=== PATIENT | female | born 1980 | race Caucasian/White ===

== ENCOUNTER 2017-10-01 15:23 | Emergency (ER) | payer OTHER, SELFPAY ==
[2017-10-01 15:25] VITALS: BP 127/88; PULSE 78; RESP 18; TEMP 36.7; O2SAT 99; BMI 37.5
--- NOTE | 2017-10-01 15:50 | CT_ITS ---
STUDY: CT ABDOMEN AND PELVIS WITHOUT CONTRAST REASON FOR EXAM: Female, 37 years old. Left flank pain. RADIATION DOSAGE (If Supplied By Facility): CTDIvol = ( 14.71 ) mGy, DLP = ( 692.01 ) mGycm TECHNIQUE: Transaxial images were obtained from the dome of the diaphragm to the symphysis pubis without oral contrast, and without intravenous contrast. Sagittal and coronal images were reconstructed. Individualized dose optimization techniques were used for this CT. COMPARISON: 07/15/2015. FINDINGS: The visualized lung bases are unremarkable. The visualized portions of the heart are within normal limits. There is decreased attenuation of the liver consistent with steatosis. Normal gallbladder and extrahepatic biliary system. Normal spleen. Normal pancreas. Normal bilateral adrenal glands. Normal right kidney. Left kidney shows mild hydronephrosis and there is mild left hydroureter. Findings are related to a 5 mm left UVJ stone which can be seen on axial image 149. Additionally the left kidney has a 4 mm nonobstructing mid renal stone and a 6 mm nonobstructing lower pole stone. Normal visualized stomach. Normal small intestine. Normal colon. There are surgical clips in the region of the appendix consistent with a prior appendectomy. Normal abdominal aorta. Normal inferior vena cava. Normal retroperitoneum. Normal urinary bladder. Normal visualized uterus. Normal abdominal wall. Normal osseous structures. CT/Abdomen/Pelvis without Cont IMPRESSION: Obstruction of the left kidney, collecting system and ureter from a 5 mm left UVJ stone. Electronically Signed: Reyes Aguilar MD at 17:06 EDT , Service support ,
--- NOTE | 2017-10-01 15:53 | ED.DCSUM_ITS ---
- ER Visit Summary Date of Service: 10/01/17 Chief Complaint: Left flank pain History of Present Illness: The patient is a 37 F with left lower back pain yesterday and mild pink tinged urine. Today she has pain in the left lower quadrant. Patient does have history of prior kidney stones. She denies possibility of with last menstrual cycle ending 3 days ago. Physical Examination: Vital signs unremarkable. Patient sitting upright in the bed. She appears uncomfortable but in no acute distress. Heart is regular rate and rhythm. Lung sounds are clear. Abdomen is soft with mild left lower quadrant tenderness. There is no CVA tenderness on exam. Test Results: CBC was a white count 11.7 with 81% neutrophils. Chemistry studies significant for a creatinine 1.03. Urinalysis shows ketones and blood, no WBCs and nitrites are negative. test negative. CT flank shows obstruction of the left kidney, collecting system, and ureter secondary to a 5 mm stone at the left UVJ. Emergency Department Course and Treatment: Patient was given morphine, Toradol, Zofran, and IV fluids. On repeat evaluation she is resting comfortably and pain is significantly improved. She will be given pain medication for home. She is known to Dr. Dickson and will follow up with him early next week if not improving. If pain recurs or is worse over the weekend she is to return to the emergency room. Treatment Plan: [] Disposition: Discharge Impression: Left ureteral stone This note was generated with [employer] dictation software. It may contain incorrect words, spelling, and punctuation that were not noted in review of the chart prior to signing ED Disposition - Plan for ED Patient: Chief Complaint: Flank Pain Referrals: Surjit Castillo MD [Primary Care Provider] -
[2017-10-01] MEDS: Ketorolac 30 MG/ML Syringe IV (16:04)
[2017-10-01] MEDS: Ondansetron 4 MG/2 ML Vial IV (16:04)
[2017-10-01] MEDS: 0.9% Normal Saline 1,000 ML 250 ML IV (16:04)
[2017-10-01] MEDS: Morphine 4 MG/ML Syringe IV (16:04)
[2017-10-01 16:11] LABS: Absolute Neutrophil Count 9.6 X10^3/uL (2.0-7.7); Basophil# 0.02 X10^3/uL; Basophil% 0.2 % (0-1); Eosinophil# 0.02 X10^3/uL; Eosinophils% 0.2 % (0-5); Hemoglobin 12.9 g/dl (12.0-15.0); Mean Corp Hgb Conc 34.9 g/gl (32-36); Mean Corpuscular Hgb 29.5 pg (27.0-32.0); Mean Corpuscular Volume 84.7 fL (81-99); Mean Platelet Vol. 8.9 fl (6.2-12.0); Monocyte# 0.68 X10^3/uL; Monocyte% 5.8 % (0-10); Neutrophil # 9.57 X10^3/uL (2.7-7.7); Neutrophil % 81.6 % (47-70); Platelet Count 341 K/mm3 (150-450); RBC Distribution Width CV 12.1 % (11.6-14.6); Red Blood Count 4.37 M/mm3 (4.2-5.4); White Blood Count 11.7 K/mm3 (4.4-11.0)
[2017-10-01 16:13] LABS: POSITIVE COUNT NO; POSITIVE DIFFERENTIAL NO; POSITIVE MORPHOLOGY NO
[2017-10-01 16:23] LABS: Anion Gap 11 (5-15); BUN 14 mg/dL (7-18); BUN/Creat Ratio 13.6 RATIO (10-20); Calcium,Total 8.8 mg/dL (8.5-10.1); Chloride 104 mmol/L (98-107); Creatinine, Serum 1.03 mg/dL (0.55-1.02); EST Glomerular Filtration Rate 64 mL/min (>60); Est Glom Filt Rate - Afr Amer 77 mL/min (>60); Estimated Creatinine Clearance 64.58 ml/min; Glucose 84 mg/dL (74-106); Sodium Level 137 mmol/L (136-145)
[2017-10-01 16:24] LABS: White Blood Cells 0 SEEN /hpf (0-5)
[2017-10-01 16:30] LABS: Pregnancy, Serum, hCG Quali. NEGATIVE Negative (0-9 Nonpreg)
[2017-10-01 17:25] LABS: Color, Urine Yellow (Yellow); Glucose, Dipstick NEGATIVE (Normal); Ketone-Dipstick 150 mg/dl (Negative); Specific Gravity, Urine 1.025 (1.002-1.030); Urine Bilirubin Dipstick Negative (Negative); Urine Clarity Sl Cloudy (Clear)
[2017-10-01 17:26] LABS: Bacteria 2+ /hpf (None Seen); Calcium Oxalate Crystals Ur 2+ /hpf (<or=2+); Leukocyte Esterase-Dipstick Negative /ul (Negative); Mucous, Urine 4+ /hpf (<or=2+); Nitrite-Dipstick Negative (Negative); Occult Blood-Urine 150 /ul (Negative); Protein-Dipstick 30 mg/dl (Negative); Red Blood Cells-Urine 5-10 SEEN /hpf (0-5); Squamous Epithelial Cells - UA 5-10 SEEN /hpf (5-10); Urine Urobilinogen 1 mg/dl (Normal)
--- NOTE | 2017-10-01 17:45 | DCINST.ED_ITS ---
ED Disposition - Plan for ED Patient: Disposition: Home or Assisted Living Chief Complaint: Flank Pain Instructions: ED Stone Renal W Colic Prescriptions: Ondansetron [Zofran Odt] 4 mg PO Q8H PRN PRN #10 tab PRN Reason: Nausea Hydrocodone/Acetaminophen [[place] 5-325 Tablet] 1 - 2 each PO 4X/DAY PRN PRN 5 Days #20 tablet PRN Reason: Pain Ketorolac [Toradol] 10 mg PO Q6H PRN #20 tab PRN Reason: Pain Referrals: Adryan Dickson MD [STAFF PHYSICIAN] - 3-5 Days if not improving
[2017-10-01 17:52] VITALS: BP 126/75; PULSE 58; RESP 17; O2SAT 99
--- NOTE | 2017-10-01 17:54 | ED.RN ---
PT GIVEN WRITTEN AND VERBAL DISCHARGE INSTRUCTIONS AND HOME GOING PRESCRIPTIONS. PT VERBALIZES UNDERSTANDING AND DENIES ANY FURTHER QUESTIONS. PT IV D/C AND COVERED WITH 2X2 GAUZE DRESSING AND PAPER TAPE. PT DRESSES SELF AND AMBULATES OUT OF DEPT WITH PARENT AND FAMILY MEMBER.
== END 2017-10-01 17:56 | disposition home or self-care (01) ==
PROVIDERS: Emergency Provider Emergency Medicine; Family Provider Family Medicine; PCP Family Medicine
DX: N20.1 Calculus of ureter (principal); Z87.442 Personal history of urinary calculi
CPT/HCPCS: 74176; 80048; 81001; 84703; 85025; 96361; 96374; 96375; 99283; J7030; A4216

== ENCOUNTER → 2018-03-28 11:32 | Outpatient (CLI) | payer OTHER, SELFPAY ==
[2018-03-28 11:03] VITALS: BMI 32.4
[2018-03-28 11:48] LABS: Absolute Neutrophil Count 7.9 X10^3/uL (2.0-7.7); Basophil# 0.04 X10^3/uL; Basophil% 0.4 % (0-1); Eosinophil# 0.12 X10^3/uL; Eosinophils% 1.1 % (0-5); Hemoglobin 13.2 g/dl (12.0-15.0); Lymphocyte % 20.4 % (19-41); Mean Corp Hgb Conc 33.8 g/gl (32-36); Mean Corpuscular Hgb 29.5 pg (27.0-32.0); Mean Corpuscular Volume 87.1 fL (81-99); Monocyte# 0.54 X10^3/uL; Neutrophil # 7.88 X10^3/uL (2.7-7.7); Neutrophil % 72.9 % (47-70); Platelet Count 330 K/mm3 (150-450); RBC Distribution Width CV 12.8 % (11.6-14.6); RBC Distribution Width SD 39.7 fl (35.1-43.9); Red Blood Count 4.48 M/mm3 (4.2-5.4); White Blood Count 10.8 K/mm3 (4.4-11.0)
[2018-03-28 11:50] LABS: POSITIVE COUNT NO; POSITIVE DIFFERENTIAL NO; POSITIVE MORPHOLOGY NO
== END ==
PROVIDERS: Family Provider Family Medicine; PCP Family Medicine; Referring Provider Nurse Practitioner Women's Health; Visit Provider Nurse Practitioner Women's Health
DX: N92.1 Excessive and frequent menstruation with irregular cycle (principal)
CPT/HCPCS: 36415; 85025

== ENCOUNTER 2018-04-07 07:32 | Day surgery (SDC) | payer OTHER, SELFPAY ==
[2018-03-28 11:03] VITALS: BMI 32.4
[2018-03-31 16:54] VITALS: BMI 32.4
[2018-04-07] VITALS (8 sets, daily range): BP systolic 85–113; BP diastolic 57–83; PULSE 47–97; RESP 16–18; TEMP 36.1–36.9; O2SAT 97–100; BMI 30.8
--- NOTE | 2018-04-07 06:23 | HP.PCM_ITS ---
- Problem List (1) Enlarged uterus Status: Acute (2) Menorrhagia with irregular cycle Status: Acute History and Physical Date of Admission: 04/07/18 Vital Signs 03/31/18 Body Mass Index (BMI) 32.4 03/31/18 Weight: 183 lb 4 oz 03/31/18 Blood Pressure 122/78 H Intake Visit Reasons: pre op/discuss type of hyst Chief Complaint: pre op appt Laundry Aide Required: No Is patient in pain?: No Allergies Sulfa (Sulfonamide Antibiotics) Allergy (Verified 03/31/18 16:13) Rash Medications Multivit-Min/Iron/Folic Acid/K [Multi For Her Softgel] 2 ea PO DAILY 03/31/18 [History Confirmed 03/31/18] Is last menstrual period known: No Post menopausal: No Patient : No : No [facility] Medical History delivery delivered (Acute) Kidney stone (Acute) Migraine (Acute) Surgical History History of appendectomy (Acute) History of bowel resection (Acute) Social History Smoking Status: Never smoker alcohol intake: current details: social substance use type: does not use caffeine: Yes what type of physical activity do you participate in: walking seatbelt use: always do you feel safe at home: Yes additional social history: - Patient works at [employer] [facility] HPI pre op/discuss type of hyst: Details: NATHALY GARRETT is a 37 year old who presents for menometrorrhagia that has failed medical managment. she had a recent ct scan that showed a normal sized uterus, so suspicion is for hormonal dysfunction. ROS Const Constitutional: Denies fatigue, fever(s), headache(s), increased appetite, poor appetite, weight gain or weight loss ENT ENT: Denies dry mouth Cardio Card: Denies chest pain Resp Resp: Denies cough or dyspnea GI GI: Reports as per HPI; denies abdominal pain, constipation, nausea or vomiting : Reports as per HPI; denies difficulty urinating, painful urination, blood in urine, nipple discharge, pelvic pain, urinary frequency, urinary incontinence, urinary h esitancy, urinary urgency, vaginal discharge, vaginal dryness, vaginal odor, vaginal itching or other Skin Skin/Breast: Denies hair loss, change in hair, dry skin, breast lump, breast pain, breast skin changes or nipple discharge Exam Const General: cooperative, healthy appearing, comfortable, no acute distress, well developed Nutritional Appearance: average body habitus Orientation: alert [facility] Head: normal to inspection, normocephalic Ears: hearing grossly normal bilaterally, external ears normal Nose: external nose normal, nares normal Face and sinus: normal facial exam Neck Neck: normal visual inspection, no lymphadenopathy, trachea midline Thyroid: thyroid normal Resp Effort & Inspection: normal respiratory effort Musc Other: gross motor intact no deficits, full bilateral strength Skin General: no rashes or lesions noted Neuro Motor: muscle tone normal throughout Assessment & Plan Problems 1. Enlarged uterus N85.2 2. Menorrhagia with irregular cycle N92.1 Plan discussed options, recommend LAVH BS Cysto for managment. discussed surgical risks including risks of anesthesia, infection, bleeding, injury to bowel, bladder or blood vessels, and patient wishes to proceed with surgery. UPDATE- I have seen the patient and performed any clinically relevant updates to the history and physical exam. Andra Yo MD
[2018-04-07] MEDS: Celecoxib 200 MG Capsule 400 MG PO (08:04)
[2018-04-07] MEDS: Phenazopyridine 95 MG Tablet 190 MG PO (08:05)
[2018-04-07] MEDS: Acetaminophen 500 MG Tablet 1000 MG PO ×2 (08:05→14:00)
[2018-04-07] MEDS: Scopolamine 1mg/72hr Patch 1 PATCH TRANSDERM. (08:05)
[2018-04-07] MEDS: Gabapentin 600 MG Tablet PO (08:05)
[2018-04-07] MEDS: Enoxaparin 40 MG/0.4 ML Syringe SC (08:06)
[2018-04-07 08:10] LABS: Internal QC Validated? YES +Cl - CLEAR BKGD; Pregnancy, Urine Negative Negative
[2018-04-07 08:20] LABS: Bedside Glucose 78 mg/dL (70-110)
[2018-04-07] MEDS: Lactated Ringers 1,000 ML 40 ML IV (08:26)
[2018-04-07] MEDS: Magnesium Sulfate 4gm/100mL 4 GM/100 ML IV.SOLN. IV (08:27)
--- NOTE | 2018-04-07 09:45 | HYST_PTH ---
PATIENT: NATHALY GARRETT LOC: [facility] U#:[id number] AGE/SX: 37/F ROOM: RE04/07/[address]: Dr. Andra Yo MD : 1980 BED: DIS: 04/07/2018 SPEC #: [id number] RECD: 04/07/18 13:52 STATUS: HUMERA JAZZY #: [id number] KIM: 04/07/18 09:[address]: Andra Yo DEPT: SURGICAL PATHOLOGY RECD BY: Yariel Cook ENTERED: 04/07/18 14:05 SP TYPE: HYSTERECT OTHR DR: Dr. Surjit Castillo MD Tissues: Uterus, NOS Procedures: Surgery Specimen Level V HEADER OPERATION: ERAS, hysterectomy, lap-assisted vaginal, BSO, cysto PRE-OP DIAGNOSIS: Enlarged uterus, menorrhagia with irregular cycle TISSUE SUBMITTED: Uterus and bilateral fallopian tubes MICROSCOPIC DIAGNOSIS Uterus, hysterectomy: Cervix - squamous metaplasia and mild chronic inflammation. Endometrium - proliferative endometrium with focal glandular breakdown. Mild chronic endometritis. Myometrium - focal superficial adenomyosis. Right fallopian tube - no pathologic change. Left fallopian tube - benign paratubal cyst. AM:selvin 04/08/18 MICROSCOPIC DESCRIPTION Slides are reviewed. GROSS DESCRIPTION Received in fixative is one container labeled with the patient's name and designated uterus. The specimen consists of a uterus with attached cervix and attached right and left fallopian tubes. The uterus with cervix measures 11 x 6 x 4.5 cm and weighs 98 gm. The ectocervix is unremarkable. The cervical os is round in contour. The endocervical canal measures 3.8 cm in length and is grossly unremarkable. The triangular endometrial cavity measures 4.5 x 3 cm. The reddish-miles velvety endometrium measures up to 0.2 cm in thickness. The myometrium measures 1.8 cm in average thickness and is free of mass lesions. The right and left fallopian tubes are similar in appearance and measures 6 cm in length and 0.6 cm in average diameter. Normal fimbrial ends are identified on both fallopian tubes. The left fallopian tube contains a small glistening cyst containing clear fluid measuring 5 cm. The cyst is present close to the fimbriated end of the fallopian tube. Geospatial Information Technologist sections are submitted as follows: 1 - anterior cervix, 2 - posterior cervix, 3 & 4 - anterior uterine wall, 5 & 6 - posterior uterine wall, 7 - right fallopian tube, 8 - left fallopian tube and paratubal cyst. AM:selvin 04/07/18 TC: 5 CPT: 41738
--- NOTE | 2018-04-07 09:54 | PCM.OPRPT ---
Problem List (1) Enlarged uterus Status: Acute (2) Menorrhagia with irregular cycle Status: Acute Report of Operation Date of Procedure: 04/07/18 Pre-Operative Diagnosis: aub Post-Operative Diagnosis: same Surgery/Procedure Performed:: LAVH BS cysto Description of Surgical Findings:: Severe omental to anterior abdominal wall scar tissue severe omental to uterine adhesions severe vesicouterine adhesions. Normal ovaries bilaterally clubbed fallopian tubes bilaterally, left perisigmoid to lateral pelvic sidewall adhesions cement crusher operator: Genevieve Kruse Type of Anesthesia:: General Specimen's removed: uterus tubes Drains: cardenas Estimated Blood Loss (mL): minimal Fluids Replaced: crystalloid Description of Procedure: Patient received preoperative antibiotics and SCDs were on preoperatively. Patient was taken back to the operating room and placed in the dorsal lithotomy position. General anesthesia was induced and patient was prepped and draped in normal sterile fashion. Uterine manipulator was placed inside the uterus and Cardenas catheter placed in the bladder. The umbilicus was grasped with towel clamps and an intraumbilical incision was made after injecting with quarter percent Marcaine and a Veress needle entered into the abdomen confirmed to be intra-abdominal with a low opening pressure. Abdomen was insufflated with CO2 gas and the Veress needle removed and the 5 mm trocar was placed under direct visualization without complication. Right and left lower quadrants were transilluminated and injected with quarter percent Marcaine and 5 mm ports placed under direct visualization. Pelvis was well visualized see operative findings for additional information. Severe scar tissue was encountered and taken down with the LigaSure device both bluntly and with the LigaSure device. Bilateral fallopian tubes were identified and transected with the LigaSure device across the mesosalpinx to the level of the utero-ovarian ligament which was also transected with the LigaSure device. The broad ligament was opened up by transecting the round ligament bilaterally and skeletonizing the uterine vessels bilaterally and creating a bladder flap using the LigaSure device. The uterine arteries were transected bilaterally with good visualization of the bladder and the ureters were seen to be inferior lateral to the operative area. Attention was then paid to the vaginal portion of the procedure and the cervix was grasped with Mendoza clamps and circumferentially injected with dilute vasopressin. A circumferential incision was made and the vaginal mucosa was mobilized off posteriorly and the cul-de-sac entered into sharply and a longneck speculum placed. The anterior cul-de-sac was then identified and entered into sharply. The uterosacral ligaments were clamped cut and suture ligated with 0 Monocryl bilaterally followed by the cardinal ligaments which were clamped cut and suture ligated bilaterally with 0 Monocryl. The uterus serially descended and was removed without difficulty with minimal morcellation. Pelvic sidewall pedicles were checked and noted to have excellent hemostasis. The vaginal mucosa was reapproximated incorporating the posterior peritoneum. This was reapproximated using 0 Vicryl [id number] sutures. Excellent hemostasis was noted. The cystoscopy was then performed and bilateral ureteral strong spray was noted and the bladder was noted to have no abnormality or lesions seen. Cardenas catheter was replaced and then attention paid to the abdominal portion of the procedure again. The pelvis and cul-de-sac was well visualized and no significant active bleeding noted but some raw areas were seen on the peritoneum and therefore Roc was applied. Pressure was taken down and the areas visualized and noted of excellent hemostasis. All ports were removed under direct visualization without complication and the abdomen was desufflated of air. The instruments removed from the abdomen and the vagina vaginal sweep was negative. Port sites on the abdomen were closed with 4-0 Monocryl interrupted sutures and Steri's and windows were applied. She was awoken and taken recovery in stable condition. Grafts/Implants Used: none - Complications none - Admit VTE Documentation VTE Present on Admission: No VTE Mechan Device Prophylaxis: SCD's VTE Pharm Prophylaxis ordered?: Yes
--- NOTE | 2018-04-07 09:58 | OP.PCM_ITS ---
Problem List (1) Enlarged uterus Status: Acute (2) Menorrhagia with irregular cycle Status: Acute Report of Operation Date of Procedure: 04/07/18 Pre-Operative Diagnosis: aub Post-Operative Diagnosis: same Surgery/Procedure Performed:: LAVH BS cysto Description of Surgical Findings:: Severe omental to anterior abdominal wall scar tissue severe omental to uterine adhesions severe vesicouterine adhesions. Normal ovaries bilaterally clubbed fallopian tubes bilaterally, left perisigmoid to lateral pelvic sidewall adhesions oven dauber: Genevieve Kruse Type of Anesthesia:: General Specimen's removed: uterus tubes Drains: cardenas Estimated Blood Loss (mL): minimal Fluids Replaced: crystalloid Description of Procedure: Patient received preoperative antibiotics and SCDs were on preoperatively. Patient was taken back to the operating room and placed in the dorsal lithotomy position. General anesthesia was induced and patient was prepped and draped in normal sterile fashion. Uterine manipulator was placed inside the uterus and Cardenas catheter placed in the bladder. The umbilicus was grasped with towel clamps and an intraumbilical incision was made after injecting with quarter percent Marcaine and a Veress needle entered into the abdomen confirmed to be intra-abdominal with a low opening pressure. Abdomen was insufflated with CO2 gas and the Veress needle removed and the 5 mm trocar was placed under direct visualization without complication. Right and left lower quadrants were transilluminated and injected with quarter percent Marcaine and 5 mm ports placed under direct visualization. Pelvis was well visualized see operative findings for additional information. Severe scar tissue was encountered and taken down with the LigaSure device both bluntly and with the LigaSure device. Bilateral fallopian tubes were identified and transected with the LigaSure device across the mesosalpinx to the level of the utero-ovarian ligament which was also transected with the LigaSure device. The broad ligament was opened up by transecting the round ligament bilaterally and skeletonizing the uterine vessels bilaterally and creating a bladder flap using the LigaSure device. The uterine arteries were transected bilaterally with good visualization of the bladder and the ureters were seen to be inferior lateral to the operative area. Attention was then paid to the vaginal portion of the procedure and the cervix was grasped with Mendoza clamps and circumferentially injected with dilute vasopressin. A circumferential incision was made and the vaginal mucosa was mobilized off posteriorly and the cul-de-sac entered into sharply and a longneck speculum placed. The anterior cul-de-sac was then identified and entered into sharply. The uterosacral ligaments were clamped cut and suture ligated with 0 Monocryl bilaterally followed by the cardinal ligaments which were clamped cut and suture ligated bilaterally with 0 Monocryl. The uterus serially descended and was removed without difficulty with minimal morcellation. Pelvic sidewall pedicles were checked and noted to have excellent hemostasis. The vaginal mucosa was reapproximated incorporating the posterior peritoneum. This was reapproximated using 0 Vicryl [id number] sutures. Excellent hemostasis was noted. The cystoscopy was then performed and bilateral ureteral strong spray wa s noted and the bladder was noted to have no abnormality or lesions seen. Cardenas catheter was replaced and then attention paid to the abdominal portion of the procedure again. The pelvis and cul-de-sac was well visualized and no significant active bleeding noted but some raw areas were seen on the peritoneum and therefore Roc was applied. Pressure was taken down and the areas visualized and noted of excellent hemostasis. All ports were removed under direct visualization without complication and the abdomen was desufflated of air. The instruments removed from the abdomen and the vagina vaginal sweep was negative. Port sites on the abdomen were closed with 4-0 Monocryl interrupted sutures and Steri's and windows were applied. She was awoken and taken recovery in stable condition. Grafts/Implants Used: none - Complications none - Admit VTE Documentation VTE Present on Admission: No VTE Mechan Device Prophylaxis: SCD's VTE Pharm Prophylaxis ordered?: Yes
--- NOTE | 2018-04-07 09:58 | PCM.DC.VHY ---
Discharge Diet: No Restrictions Discharge Activity: Return to Normal Activity, May Not Drive, May Shower May resume sexual activity in: 6-8 weeks Call your doctor if your incision/area has: Continuous Slow Oozing, Sudden Increased Bleeding, Increased Pain/ Swelling, Increased Redness, Foul Smelling Discharge Call your doctor if you observe: Fever of 101 or Higher, Inability to urinate, Inability to have a bowel movement, Using more than one pad per hour Allergies/Adverse Reactions: Allergies Sulfa (Sulfonamide Antibiotics) Allergy (Verified 03/31/18 16:13) Rash Medications to take at Discharge Multivit-Min/Iron/Folic Acid/K [Multi For Her Softgel] 2 ea PO DAILY 03/31/18 Orders to be completed after discharge: Type & Screen Time Frame: 04/07/18, Facility: [facility], Location: Laboratory Primary Care Physician: Surjit Castillo MD [Primary Care Provider] - Test Results: Test results from this visit will be discussed in further detail at your follow-up appointment, if applicable. Please Follow Up With: Andra Yo MD - [phone]
[2018-04-07] MEDS: Vasopressin 20 UNITS/ML Vial (10:54)
[2018-04-07] MEDS: Bupivacaine 0.25% 30 ML Vial (11:30)
[2018-04-07] MEDS: Ketorolac 30 MG/ML Syringe IV (12:07)
[2018-04-07] MEDS: Lactated Ringers 1,000 ML 100 ML IV ×2 (12:30→14:07)
[2018-04-07] MEDS: Ondansetron ODT 4 MG Tablet PO (14:06)
[2018-04-07] MEDS: oxyCODONE 5 MG Tablet PO (15:33)
== END 2018-04-07 17:06 | disposition home or self-care (01) ==
LOC: SDC 07:35 → AC 07:35 → MS3 09:25 → AC 12:43
PROVIDERS: Family Provider Family Medicine; PCP Family Medicine; Referring Provider Obstetrics & Gynecology; Visit Provider Obstetrics & Gynecology
PROC: 0UT9FZZ Resection of Uterus, Via Natural or Artificial Opening With Percutaneous Endoscopic Assistance (ICD-10-PCS; CPT 58552; principal; 2018-04-07 09:20)
DX: N93.9 Abnormal uterine and vaginal bleeding, unspecified (principal); N92.1 Excessive and frequent menstruation with irregular cycle; N71.1 Chronic inflammatory disease of uterus; N83.8 Other noninflammatory disorders of ovary, fallopian tube and broad ligament; N73.6 Female pelvic peritoneal adhesions (postinfective); N80.0 Endometriosis of uterus
CPT/HCPCS: 58552; 81025; 82962; 86850; 86900; 88307; J7120; J2405; Q9968

== ENCOUNTER 2018-09-15 23:29 | Emergency (ER) | payer OTHER, SELFPAY ==
[2018-05-20 11:36] VITALS: BMI 29.8
[2018-09-15 23:30] VITALS: BP 121/70; PULSE 65; RESP 18; TEMP 36; O2SAT 99; BMI 31.6
[2018-09-16 00:18] LABS: Bacteria 0 SEEN /hpf (None Seen); Color, Urine Yellow (Yellow); Glucose, Dipstick Normal (Normal); Ketone-Dipstick 5 mg/dl (Negative); Leukocyte Esterase-Dipstick 25 /ul (Negative); Nitrite-Dipstick Negative (Negative); Occult Blood-Urine 250 /ul (Negative); Protein-Dipstick 30 mg/dl (Negative); Red Blood Cells-Urine 0 SEEN /hpf (0-5); Urine Bilirubin Dipstick Negative (Negative); Urine Clarity Sl. Cloudy (Clear); Urine Urobilinogen 1 mg/dl (Normal)
[2018-09-16 00:32] LABS: Mucous, Urine 2+ /hpf (<or=2+); Squamous Epithelial Cells - UA 0-5 SEEN /hpf (5-10); White Blood Cells 0-5 SEEN /hpf (0-5)
--- NOTE | 2018-09-16 00:40 | CT_ITS ---
HISTORY: LT FLANK PAIN, NAUSEA. Hx of kidney stones. Prev. hysterectomy EXAMINATION: CT Abdomen And Pelvis W/O Contrast TECHNIQUE: Helically acquired images were obtained of the abdomen and pelvis without oral or IV contrast as per renal stone protocol. A radiation dose optimization technique was used for this scan. IV Contrast dosage and agent: None. Oral contrast: None. COMPARISON: 10/01/2017 FINDINGS: Lower thorax: Clear. No pleural effusion or pericardial effusion. Considerable food contents within the stomach. Limited non-infusion exam. Allowing for this, negative liver, spleen, pancreas, gallbladder, and biliary system. The kidneys are normal in position. 5 x 3 mm obstructing stone within the proximal left ureter at the L3 level with mild hydronephrosis and hydroureter proximal to the stone. Additional 5 x 3 mm stone within the lower pole calyx of the left kidney. No right renal calculi and no hydronephrosis or hydroureter on the right. The adrenal glands are not enlarged. Abdominal aorta is normal in caliber. No ascites or retroperitoneal lymph node enlargement. GI tract: No obstruction. Right lower quadrant surgical clips compatible with previous appendectomy. Pelvis: Retroverted uterus which is normal in size. Small calcified fibroid at the uterine fundus. Normal urinary bladder. No free fluid or lymph node enlargement. CT/Abdomen/Pelvis without Cont IMPRESSION: 1. 5 x 3 mm obstructing stone within the proximal left ureter at the L3 level. 2. Additional left intrarenal stone, unchanged. 3. No hydronephrosis or hydroureter on the right. Individualized dose optimization techniques were used for this CT. at 0141 Reported and signed by: Hai Bai MD Electronically Signed: Hai Bai, at 1:40 EDT Tel , Service support ,
[2018-09-16 00:46] LABS: Absolute Lymphocyte Count 2.99 X10^3/uL (0.83-4.51); Absolute Neutrophil Count 4.3 X10^3/uL (2.0-7.7); Basophil# 0.05 X10^3/uL; Basophil% 0.6 % (0-1); Eosinophil# 0.08 X10^3/uL; Hematocrit 37.8 % (37-47); Hemoglobin 12.9 g/dL (12.0-15.0); Lymphocyte # 2.99 X10^3/ul (4.0); Lymphocyte % 36.5 % (19-41); Mean Corp Hgb Conc 34.1 g/dL (32-36); Mean Corpuscular Hgb 29.3 pg (27.0-32.0); Mean Corpuscular Volume 85.9 fL (81-99); Mean Platelet Vol. 8.9 fl (6.2-12.0); Monocyte# 0.73 X10^3/uL; Monocyte% 8.9 % (0-10); NRBC Flagged by Analyzer 0 % (0-5); Neutrophil # 4.32 X10^3/uL (2.7-7.7); Neutrophil % 52.6 % (47-70); Platelet Count 342 K/mm3 (150-450); RBC Distribution Width CV 11.9 % (11.6-14.6); RBC Distribution Width SD 36.8 fl (35.1-43.9); White Blood Count 8.2 K/mm3 (4.4-11.0)
[2018-09-16] MEDS: Ondansetron 4 MG/2 ML Vial IV (00:48)
[2018-09-16] MEDS: Morphine 4 MG/ML Syringe IV (00:48)
[2018-09-16] MEDS: 0.9% Normal Saline 1,000 ML 1000 ML IV (00:48)
[2018-09-16 02:00] VITALS: BP 108/62; PULSE 61; RESP 14; TEMP 36.8; O2SAT 99
[2018-09-16 02:51] LABS: Anion Gap 7 (5-15); BUN 19 mg/dL (7-18); BUN/Creat Ratio 21.5 RATIO (10-20); Chloride 104 mmol/L (98-107); Creatinine, Serum 0.88 mg/dL (0.55-1.02); EST Glomerular Filtration Rate 76 mL/min (>60); Est Glom Filt Rate - Afr Amer 92 mL/min (>60); Estimated Creatinine Clearance 74.85 ml/min; Glucose 117 mg/dL (74-106); Potassium 4.1 mmol/L (3.5-5.1); Sodium Level 139 mmol/L (136-145)
--- NOTE | 2018-09-16 03:01 | ED.DCSUM_ITS ---
- ER Visit Summary Date of Service: 09/16/18 Chief Complaint: Flank pain History of Present Illness: The patient is a 38 F who presents with flank pain. This began about 5 days ago. She does have a history of kidney stones. She was initially trying to manage her symptoms at home. She is been taking leftover 800 mg ibuprofen and drinking plenty of fluids. However pain is uncontrolled. She was 9 out of 10 when she got here but it is now 6 out of 10. She reports nausea without vomiting. No urinary frequency or urgency. No dysuria. No fevers. Physical Examination: Afebrile vitals unremarkable Moist mucous membranes Heart regular rate and rhythm Lungs are clear Abdomen soft Alert No CVA or flank tenderness Test Results: CBC BMP unremarkable. Urinalysis shows [address] the flank shows a 5 x 3 mm proximal left ureteral calculus. Emergency Department Course and Treatment: Patient was treated with IV fluids morphine and Zofran here. She is improved on reevaluation. We will proceed with expectant management and outpatient follow-up. She was instructed on specific signs and symptoms to monitor for and understands to return for new or worsening symptoms. She will follow-up with urology. She was given prescriptions for Percocet and Flomax. Treatment Plan: [] Disposition: Discharge Impression: Ureterolithiasis This note was generated with [employer] dictation software. It may contain incorrect words, spelling, and punctuation that were not noted in review of the chart prior to signing ED Disposition - Plan for ED Patient: Referrals: Surjit Castillo MD [Primary Care Provider] -
--- NOTE | 2018-09-16 03:03 | ED.DEP ---
ED Disposition - Plan for ED Patient: Instructions: KIDNEY STONE w/ Colic Prescriptions: Tamsulosin HCl [Flomax] 0.4 mg PO DAILY #7 cap Prescription Printed Oxycodone HCl/Acetaminophen [Percocet 5/325] 1 tab PO Q6H PRN PRN 3 Days #12 tab PRN Reason: Pain Prescription Printed Referrals: Surjit Castillo MD [Primary Care Provider] - Adryan Dickson MD [STAFF PHYSICIAN] -
[2018-09-16 03:27] VITALS: RESP 15
--- NOTE | 2018-09-16 03:28 | ED.RN ---
PT GIVEN WRITTEN AND VERBAL DISCHARGE INSTRUCTIONS AND HOME GOING PRESCRIPTIONS. PT VERBALIZES UNDERSTANDING AND DENIES ANY FURTHER QUESTIONS. PT IV D/C AND COVERED WITH 2X2 GAUZE. AMBULATES TO WAITING ROOM TO BE PICKED UP BY SPOUSE.
== END 2018-09-16 03:29 | disposition home or self-care (01) ==
PROVIDERS: Emergency Provider Emergency Medicine; Family Provider Family Medicine; PCP Family Medicine
DX: N20.2 Calculus of kidney with calculus of ureter (principal); Z87.442 Personal history of urinary calculi
CPT/HCPCS: 74176; 80048; 81001; 85025; 96361; 96374; 96375; 99283; J7030; A4216; J2405

== ENCOUNTER 2018-09-21 10:28 | Day surgery (SDC) | payer OTHER, SELFPAY ==
--- NOTE | 2018-09-21 10:15 | RAD_ITS ---
STUDY: X-RAY - ABDOMEN/PELVIS REASON FOR EXAM: Female, 38 years old. Left kidney stones. TECHNIQUE: Single AP view of the abdomen / pelvis. COMPARISON: None. FINDINGS: There is a moderate amount of right-sided colonic fecal material. Tiny calcifications are seen in the mid and lower poles of the left kidney. A 3.2 mm calculus is seen overlying the transverse process of the L4 vertebrae. There are 6 lumbar segments. Normal soft tissue structures. Normal visualized osseous structures. RAD/Abdomen Single View IMPRESSION: Nonobstructive left intrarenal calculi. 3.2 mm calculus in the midportion of the left ureter. Electronically Signed: Lane Moran, at 11:09 EDT , Service support ,
[2018-09-21 11:00] VITALS: BP 103/81; PULSE 61; RESP 16; TEMP 36.6; O2SAT 99; BMI 32.0
[2018-09-21] MEDS: Cefazolin 2 GM in 0.9% Normal Saline 100 ML IV (12:38)
--- NOTE | 2018-09-21 12:47 | DCINST_ITS ---
Discharge Diet: Light diet - advance as tolerated Discharge Activity: Return to Normal Activity, May not drive while taking narcotic pain medications. Call your doctor if your incision/area has: Continuous Slow Oozing, Sudden Increased Bleeding, Increased Pain/ Swelling Call your doctor if you observe: Fever of 101 or Higher Suture Line Care: Avoid Pulling/Pushing, Avoid Pinching/Bending Allergies/Adverse Reactions: Allergies Sulfa (Sulfonamide Antibiotics) Allergy (Verified 09/15/18 23:29) Rash Medications to take at Discharge Multivit-Min/Iron/Folic Acid/K [Multi For Her Softgel] 2 ea PO DAILY 03/31/18 Primary Care Physician: Surjit Castillo MD [Primary Care Provider] - Test Results: Test results from this visit will be discussed in further detail at your follow- up appointment, if applicable. Please Follow Up With: Adryan Dickson MD When: please call to make an appointment.
--- NOTE | 2018-09-21 13:51 | PCM.OPRPT ---
Report of Operation Date of Procedure: 09/21/18 Pre-Operative Diagnosis: Left ureteral calculi and left renal calculi Post-Operative Diagnosis: The same Surgery/Procedure Performed:: Cystoscopy and left stent placement left extracorporeal shockwave to the renal stone and the ureteral calculi Description of Surgical Findings:: 38-year-old female taken back to the operating room at the smooth induction of anesthesia she was placed in supine table on the lithotripter table we identified the stone in the mid left ureter and proceeded with shockwave lithotripsy 3000 shockwaves was given to the stone at a rate of 90 power up to 9 at the end of the shockwave therapy the stone was still visible we went up to the kidney and then shocked the stone in the kidney for another 1300 shockwaves so she had a total of 4300 for the 300 shockwaves given decided to leave but a stent and to dislodge the stone in the mid ureter. The urethra vaginal area prepped and draped in usual sterile fashion within the bladder with a 21 Serbian rigid cystourethroscope cannulated the left ureteral orifice with a wire to advance a wire passed a stone and post stent in place once a stent was in place a stent dislodged the stone fragments that were in the mid ureter that came apart could not really see the stone anymore therefore no more treatments were done but the stent was necessary in order to dislodge a fragments that were stuck in the mid ureter. Once he left the stent in place patient anesthetic reversed we trimmed the string of the stent but we left the string on it for easy extraction a few days. Patient anesthetic was reversed and she taken back to PACU good condition plan to see her next week with an x-ray and then to remove the stent. Type of Anesthesia:: General Drains: stent - Admit VTE Documentation VTE Present on Admission: No VTE Mechan Device Prophylaxis: SCD's
[2018-09-21 13:57] VITALS: BP 103/81; BP 118/61; PULSE 63; RESP 14; TEMP 36.4; O2SAT 97
[2018-09-21 14:00] VITALS: BP 103/81; BP 116/76; PULSE 65; RESP 16; O2SAT 99
[2018-09-21 14:15] VITALS: BP 103/81; BP 125/78; PULSE 63; RESP 16; O2SAT 97
[2018-09-21 14:30] VITALS: BP 103/81; BP 124/87; PULSE 51; RESP 16; TEMP 36.3; O2SAT 98
[2018-09-21 14:55] VITALS: BP 103/81
== END 2018-09-21 15:07 | disposition home or self-care (01) ==
LOC: SDC 10:32 → AC 10:36
PROVIDERS: Family Provider Family Medicine; PCP Family Medicine; Referring Provider Urology; Visit Provider Urology
PROC: (CPT 50590; principal; 2018-09-21 12:05)
DX: N20.2 Calculus of kidney with calculus of ureter (principal); Z87.442 Personal history of urinary calculi
CPT/HCPCS: 00873; 50590; 52332; 74018; J7120; C1769; C2617; J2405

== ENCOUNTER → 2018-09-27 11:38 | Outpatient (CLI) | payer OTHER, SELFPAY ==
[2018-09-21 11:00] VITALS: BMI 32.0
--- NOTE | 2018-09-27 11:49 | RAD_ITS ---
STUDY: X-RAY - ABDOMEN/PELVIS REASON FOR EXAM: Female, 38 years old. Left flank pain TECHNIQUE: AP supine and upright views of the abdomen and pelvis. COMPARISON: None. FINDINGS: Normal visualized lung bases. There is a moderate amount of colonic fecal material. There is no demonstrated free abdominal air. The visualized liver, spleen and kidneys are grossly normal in size and morphology. Normal soft tissue structures. Normal visualized osseous structures. RAD/Abdomen Single View IMPRESSION: No acute findings, constipation Electronically Signed: Kleber Casper MD at 16:47 EDT , Service support ,
== END ==
PROVIDERS: Family Provider Family Medicine; PCP Family Medicine; Referring Provider Urology; Visit Provider Urology
DX: N20.0 Calculus of kidney (principal)
CPT/HCPCS: 74018

== ENCOUNTER → 2021-01-27 07:35 | Outpatient (CLI) | payer OTHER, SELFPAY ==
--- NOTE | 2021-01-27 07:39 | BI_ITS ---
MAMMOGRAPHY - BILATERAL SCREENING REASON FOR EXAM: Female, 40 years old. Routine annual screening examination. PERTINENT HISTORY: Grandmother with breast cancer. TECHNIQUE: Digital bilateral breast dov (3D mammographic acquisition) in the CC and MLO projections. 2-D mediolateral oblique (MLO) and craniocaudad (CC) views of both breasts were obtained. CAD: Full Field Digital Mammography with Computer Added Detection was performed. COMPARISON: None. Baseline examination. FINDINGS: Breast Composition: There are scattered areas of fibroglandular density. There are no dominant masses or suspicious calcifications. No other significant abnormalities are identified. BI/SCRN MAMM (CAD)W/DOV BILAT IMPRESSION: Negative screening mammogram. Yearly followup mammogram recommended. (A) ASSESSMENT CATEGORY: BIRADS Category 1: Negative. A letter regarding these results will be sent to the patient by the facility within 30 days. Approximately 10% of breast cancers are not detected by mammography. A normal mammogram should not delay biopsy of a clinically suspicious abnormality. [id number] Electronically Signed: Lane Moran MD at 8:57 EST , Service support ,
== END ==
PROVIDERS: PCP Family Medicine; Referring Provider Family Medicine; Visit Provider Family Medicine
DX: Z12.31 Encounter for screening mammogram for malignant neoplasm of breast (principal)
CPT/HCPCS: 77063; 77067